=== PATIENT | male | born 2000 ===

== ENCOUNTER 2024-02-26 18:04 | Inpatient (IN) | payer OTHER ==
[2024-02-26 20:47] LABS: #Basophils 0.06 10x3/uL (0.0-0.2); #Eosinophils Less than 0.03 10x3/uL (0.0-0.7); %Basophils 0.5 % (0.0-1.0); %Eosinophils 0.2 % (0.0-10.0); %Lymphocytes 8.5 % (21.0-51.0); %Monocytes 4.4 % (0.0-10.0); %Neutrophils 86.1 % (42.0-75.0); Hematocrit 39.8 % (42.0-52.0); Hemoglobin 13.4 g/dL (14.0-18.0); Mean Corpuscular HGB CONC 33.7 g/dL (32.0-36.0); Mean Corpuscular Hemoglobin 31.1 pg (27.0-31.0); Mean Corpuscular Volume 92.3 fL (78.0-98.0); Mean Platelet Volume 9.8 fL (7.4-10.4); Platelet Count 230 10x3/uL (130-400); RBC Distribution Width 11.6 % (11.5-14.5); Red Blood Cell (RBC) Count 4.31 mill/uL (4.70-6.10)
[2024-02-26] MEDS ORDERED: Morphine 4 MG/ML VIAL SLOW IVP PRN (20:54)
[2024-02-26] MEDS ORDERED: Ondansetron ODT 4 MG TAB SL PRN (21:00)
[2024-02-26] MEDS ORDERED: Ondansetron PF 4 MG/2 ML Vial IVP PRN (21:00)
[2024-02-26 21:03] LABS: ALT (SGPT) 15 U/L (8-55); AST (SGOT) 20 U/L (5-34); Albumin 4.1 g/dL (3.5-5.0); Alkaline Phosphatase 68 U/L (40-110); Anion Gap 11 mmol/L (10-20); BUN (Urea Nitrogen) 15 mg/dL (8.9-20.6); Bilirubin, Total 0.5 mg/dL (0.2-1.2); Calc. Creatinine Clearance 0 mL/min (70-130); Calcium 8.9 mg/dL (7.8-10.44); Carbon Dioxide 21 mmol/L (22-29); Chloride 110 mmol/L (98-107); Estimated GFR 123; Globulin 2.7 g/dL (2.4-3.5); Glucose 105 mg/dL (70-105); Potassium 3.8 mmol/L (3.5-5.1); Protein, Total 6.8 g/dL (6.0-8.3); Sodium 138 mmol/L (136-145)
[2024-02-26 21:46] LABS: INR-International Normal Ratio 1.2; PTT 31.7 sec (22.9-36.1)
[2024-02-26] MEDS ORDERED: HYDROcodone/Acetaminophen 5/325 mg Tablet PO PRN (22:02)
[2024-02-26] MEDS ORDERED: Communication Order-Pharmacy FS PRN (22:15)
[2024-02-26] MEDS: TETANUS, DIPHTHERIA TOX,ADULT (TDVAX) 0.5 ML VIAL IM ONE (22:58)
[2024-02-26] MEDS: TETANUS AND DIPHTHERIA TOX/PF 0.5 ML DISP.SYRIN IM SCH (22:59)
[2024-02-27] MEDS: CEFAZOLIN 2 GM in Sodium Chloride 0.9% 100 ML IVPB SCH ×2 (00:51→20:23)
[2024-02-27 03:31] VITALS: BMI 29.2
[2024-02-27 06:04] LABS: #Basophils 0.04 10x3/uL (0.0-0.2); %Basophils 0.5 % (0.0-1.0); %Eosinophils 1.2 % (0.0-10.0); %Lymphocytes 16.8 % (21.0-51.0); %Monocytes 7.3 % (0.0-10.0); Hemoglobin 13.1 g/dL (14.0-18.0); Mean Corpuscular HGB CONC 34.5 g/dL (32.0-36.0); Mean Platelet Volume 10.1 fL (7.4-10.4); Platelet Count 243 10x3/uL (130-400); RBC Distribution Width 11.9 % (11.5-14.5); Red Blood Cell (RBC) Count 4.22 mill/uL (4.70-6.10)
[2024-02-27] MEDS ORDERED: Ropivacaine 0.5% HCl/PF (150 MG/30 ML VIAL) ONE (12:20)
[2024-02-27] MEDS ORDERED: Midazolam HCl 2 mg/2 ml Vial ONE (12:20)
[2024-02-27] MEDS ORDERED: fentaNYL 50 mcg/mL 1 mL Vial ONE ×2 (12:20→14:38)
[2024-02-27] MEDS ORDERED: Lidocaine 2% PF 5 ML VIAL ONE (12:37)
[2024-02-27] MEDS ORDERED: Dexmedetomidine 200 MCG/2 ML VIAL ONE (12:39)
[2024-02-27] MEDS ORDERED: Dexamethasone 20 MG/5 ML VIAL ONE (12:39)
[2024-02-27] MEDS ORDERED: Ondansetron PF 4 MG/2 ML Vial ONE (12:39)
[2024-02-27] MEDS ORDERED: PROPOFOL 20 ML ONE ×2 (12:40→12:57)
[2024-02-27] MEDS ORDERED: CEFAZOLIN 2 GM VIAL ONE (12:50)
[2024-02-27] MEDS ORDERED: Ketorolac Tromethamine 30 MG (1 mL) VIAL ONE (13:44)
[2024-02-27] MEDS ORDERED: Ondansetron HCl/PF 4 MG/2 ML Vial IVP PRN (15:49)
[2024-02-27] MEDS ORDERED: Meperidine HCl/PF 25 MG/ML VIAL IV PRN (15:49)
[2024-02-27] MEDS ORDERED: Promethazine HCl 25 MG/ML VIAL IM PRN (15:49)
[2024-02-28] MEDS: HYDROcodone/Acetaminophen 5/325 mg Tablet PO PRN (03:07)
[2024-02-28 05:01] LABS: #Basophils Less than 0.03 10x3/uL (0.0-0.2); #Eosinophils Less than 0.03 10x3/uL (0.0-0.7); %Basophils 0.2 % (0.0-1.0); %Lymphocytes 10.2 % (21.0-51.0); %Monocytes 7.9 % (0.0-10.0); %Neutrophils 81.3 % (42.0-75.0); Hematocrit 38.1 % (42.0-52.0); Hemoglobin 13.2 g/dL (14.0-18.0); Mean Corpuscular HGB CONC 34.6 g/dL (32.0-36.0); Mean Corpuscular Hemoglobin 31.2 pg (27.0-31.0); Mean Corpuscular Volume 90.1 fL (78.0-98.0); Mean Platelet Volume 9.9 fL (7.4-10.4); Platelet Count 219 10x3/uL (130-400); RBC Distribution Width 11.6 % (11.5-14.5); Red Blood Cell (RBC) Count 4.23 mill/uL (4.70-6.10)
[2024-02-28 08:17] VITALS: BP 143/68; TEMP 97.7
[2024-02-29] MEDS ORDERED: FLU (Fluarix Triv) TS24-25(6MOS UP)/PF 45 MCG/0.5 ML Syringe IM ONE (09:00)
== END 2024-02-28 10:01 | disposition home or self-care (01) | DRG 512 ==
LOC: ERS 18:04 → SURG A 20:33 → OBSVTOIN 22:02
PROVIDERS: ADMIT Orthopaedic Surgery; ATTEND Orthopaedic Surgery
PROC: 0PSHXZZ Reposition Right Radius, External Approach (ICD-10-PCS; principal; 2024-02-26)
PROC: 0PSKXZZ Reposition Right Ulna, External Approach (ICD-10-PCS; 2024-02-26)
PROC: 0PSH04Z Reposition Right Radius with Internal Fixation Device, Open Approach (ICD-10-PCS; 2024-02-27)
PROC: 0PSK04Z Reposition Right Ulna with Internal Fixation Device, Open Approach (ICD-10-PCS; 2024-02-27)
DX: S52.301B Unspecified fracture of shaft of right radius, initial encounter for open fracture type I or II (principal); S52.201B Unspecified fracture of shaft of right ulna, initial encounter for open fracture type I or II; Z98.890 Other specified postprocedural states; Z79.899 Other long term (current) drug therapy; V87.8XXA Person injured in other specified noncollision transport accidents involving motor vehicle (traffic), initial encounter
CPT/HCPCS: 25565; 36415; 80053; 85025; 85610; 85730; 86850; 86900; 86901; 93005; 96374; 96375; 99152; C1713; J1100; J1885; J2250; J2405; J2704; J2795; J3010